=== PATIENT | female | born 1980 | race Caucasian/White ===

== ENCOUNTER 2024-11-16 13:30 | Outpatient (CLI) | payer BC | END 2024-11-16 13:31 | disposition home or self-care (01) | LOC: LABBT 13:30 | PROVIDERS: ATTEND Surgery | DX: Z01.810 Encounter for preprocedural cardiovascular examination (principal); I10 Essential (primary) hypertension; K21.9 Gastro-esophageal reflux disease without esophagitis | CPT/HCPCS: 93005; 93010 ==

== ENCOUNTER 2024-11-23 07:55 | Observation (INO) | payer BC ==
[2024-11-16 14:34] VITALS: BMI 35.9
[2024-11-23] MEDS ORDERED: Bupivacaine 0.25% HCL 30 ML VIAL ONE (09:10)
[2024-11-23] MEDS ORDERED: EPINEPHrine 1 MG/ML VIAL ONE (09:10)
[2024-11-23] MEDS ORDERED: hydrALAZINE 20 MG/ML VIAL SLOW IVP PRN (09:17)
[2024-11-23] MEDS ORDERED: Ipratropium/Albuterol 3 ML NEB NEB PRN (09:17)
[2024-11-23] MEDS ORDERED: oxyCODONE 5 MG TAB PO PRN (09:17)
[2024-11-23] MEDS ORDERED: diphenhydrAMINE 50 MG/ML VIAL IVP PRN (09:17)
[2024-11-23] MEDS ORDERED: Dextrose 5% in Water 1,000 ML IV PRN (09:17)
[2024-11-23] MEDS ORDERED: traMADol HCl 50 MG TAB PO PRN (09:17)
[2024-11-23] MEDS ORDERED: Glucagon 1 MG/ML KIT IM PRN (09:17)
[2024-11-23] MEDS ORDERED: Dextrose 50% Abboject 50 ML SYRINGE SLOW IVP PRN (09:17)
[2024-11-23] MEDS ORDERED: Famotidine/PF 20 mg/2ml Vial ONE (09:22)
[2024-11-23] MEDS ORDERED: cefOXitin 2 GM VIAL ONE (09:23)
[2024-11-23] MEDS ORDERED: Scopolamine 1 mg/72 hour Patch ONE (09:23)
[2024-11-23] MEDS ORDERED: Enoxaparin 40 MG (0.4 mL) SYRINGE ONE (09:24)
[2024-11-23] MEDS ORDERED: Sodium Chloride 0.9% 100 ML ONE (09:24)
[2024-11-23] MEDS ORDERED: PROPOFOL 20 ML ONE (09:27)
[2024-11-23] MEDS ORDERED: fentaNYL PF 100 MCG/2 ML SYRINGE ONE ×2 (09:27→11:31)
[2024-11-23] MEDS ORDERED: Lidocaine 2% PF 5 ML VIAL ONE (09:27)
[2024-11-23] MEDS ORDERED: Rocuronium Bromide 10 MG/ML (10ML VIAL) ONE (09:29)
[2024-11-23] MEDS ORDERED: SUGAMMADEX SODIUM 200 MG/2 ML VIAL ONE (10:17)
[2024-11-23] MEDS ORDERED: Ketorolac Tromethamine 30 MG (1 mL) VIAL ONE (10:17)
[2024-11-23] MEDS ORDERED: Dexamethasone 4 mg/ml Vial ONE (10:17)
[2024-11-23] MEDS ORDERED: Ondansetron PF 4 MG/2 ML Vial ONE (10:17)
[2024-11-23] MEDS ORDERED: fentaNYL 50 mcg/mL 1 mL Vial ONE ×2 (10:53→12:02)
[2024-11-23] MEDS ORDERED: Ondansetron HCl/PF 4 MG/2 ML Vial IVP PRN (11:18)
[2024-11-23] MEDS ORDERED: Promethazine HCl 25 MG/ML VIAL IM PRN (11:18)
[2024-11-23] MEDS: Ondansetron PF 4 MG/2 ML Vial IVP PRN (13:26)
[2024-11-23] MEDS: Ketorolac Tromethamine 30 MG (1 mL) VIAL IVP SCH (13:45)
[2024-11-23] MEDS: Promethazine HCl 25 MG/ML VIAL IM PRN (15:11)
[2024-11-23] MEDS: D5 1/2 NS w/20 mEq KCL 1,000 ML IV SCH (15:24)
[2024-11-23] MEDS: Acetaminophen 650 MG/20.3 ML UDCUP PO SCH (18:42)
[2024-11-24 08:44] VITALS: BP 110/74; TEMP 98.9
[2024-11-24] MEDS: Pantoprazole 40 MG VIAL IVP SCH (10:09)
[2024-11-24] MEDS: Enoxaparin 40 MG (0.4 mL) SYRINGE SC SCH (10:09)
[2024-11-24] MEDS: Promethazine HCl 12.5 MG in Sodium Chloride 0.9% 50 ML IVPB PRN (11:36)
== END 2024-11-24 13:12 | disposition home or self-care (01) ==
LOC: SDC 07:55 → SURG B 12:39
PROVIDERS: ADMIT Surgery; ATTEND Surgery
PROC: 0DB64ZZ Excision of Stomach, Percutaneous Endoscopic Approach (ICD-10-PCS; principal; 2024-11-23)
DX: E66.01 Morbid (severe) obesity due to excess calories (principal); K29.50 Unspecified chronic gastritis without bleeding; B96.81 Helicobacter pylori [H. pylori] as the cause of diseases classified elsewhere; K21.9 Gastro-esophageal reflux disease without esophagitis; I10 Essential (primary) hypertension; E78.1 Pure hyperglyceridemia; E55.9 Vitamin D deficiency, unspecified; G47.33 Obstructive sleep apnea (adult) (pediatric); M19.90 Unspecified osteoarthritis, unspecified site; R73.03 Prediabetes; Z68.35 Body mass index [BMI] 35.0-35.9, adult; Z90.49 Acquired absence of other specified parts of digestive tract; Z87.59 Personal history of other complications of pregnancy, childbirth and the puerperium; Z88.8 Allergy status to other drugs, medicaments and biological substances; Z88.0 Allergy status to penicillin
CPT/HCPCS: 88307; 88342; 94760; J0171; J0665; J0694; J1100; J1650; J1885; J2405; J2470; J2550; J2704; J3010; J3480; J3490; S2900